=== PATIENT | male | born 1950 | race Caucasian/White ===

== ENCOUNTER 2017-10-30 07:53 | Emergency (ER) | payer MEDICARE, BC ==
[2017-10-30] MEDS: NORCO, ANEXSIA 5/325MG TABLET (HYDROcodone/ACETAMINOPHEN) PO (09:05)
== END 2017-10-30 09:19 | disposition home or self-care (01) ==
LOC: M ED 07:53
DX: S42.002A Fracture of unspecified part of left clavicle, initial encounter for closed fracture (principal); S43.102A Unspecified dislocation of left acromioclavicular joint, initial encounter; W10.9XXA Fall (on) (from) unspecified stairs and steps, initial encounter; Y92.009 Unspecified place in unspecified non-institutional (private) residence as the place of occurrence of the external cause; R56.9 Unspecified convulsions; Z79.899 Other long term (current) drug therapy; Z98.890 Other specified postprocedural states
CPT/HCPCS: 73030

== ENCOUNTER 2022-02-12 11:07 | Emergency (ER) | payer MEDICARE, SELFPAY ==
[~2022-02-12] VITALS: Ht 177.8 cm; Wt 71.8 kg
[~2022-02-12 11:07] MED LIST: HYDR-3715 PO; LAMI1TAB7 PO
[2022-02-12] MEDS ORDERED: TAMS1CAP17 (11:16)
[2022-02-12] MEDS ORDERED: diazePAM 10MG/2ML SYRINGE (J3360 PER 5MG) IV ONE (14:25)
[2022-02-12] MEDS ORDERED: NORCO, ANEXSIA 5/325MG TABLET (HYDROcodone/ACETAMINOPHEN) PO ONE (14:25)
[2022-02-12] MEDS ORDERED: ISOVUE-370 76% 100ML VIAL As Ordered ONE (14:26)
[2022-02-12 14:40] LABS: BASO % 0.4 % (0.0-1.0); EOS # 0.1 10^3/uL (0.0-0.5); EOS % 1.7 % (0.0-3.0); HEMATOCRIT 41.6 % (42.0-52.0); LYMPH # 1.7 10^3/uL (1.5-5.0); LYMPH % 23.9 % (24.0-44.0); MEAN CORPUSCULAR HEMOGLOBIN 34.1 pg (27.0-33.0); MEAN CORPUSCULAR HGB CONC 33.7 g/dl (32.0-36.5); MEAN CORPUSCULAR VOLUME 101.2 fl (80.0-96.0); MONO # 0.5 10^3/uL (0.0-0.8); MONO % 7.8 % (2.0-8.0); NEUTROPHILS # 4.6 10^3/uL (1.5-8.5); NEUTROPHILS % 66.1 % (36.0-66.0); PLATELET COUNT, AUTOMATED 187 10^3/uL (150-450); RED BLOOD COUNT 4.11 10^6/uL (4.30-6.10)
[2022-02-12 14:56] LABS: INR 0.9; PROTHROMBIN TIME 12.6 SECONDS (12.7-14.5)
[2022-02-12 14:57] LABS: PARTIAL THROMBOPLASTIN TIME 30.8 SECONDS (25.9-37.0)
[2022-02-12] MEDS ORDERED: VALI2TAB PO (15:21)
[2022-02-12] MEDS ORDERED: HYDR-3713 PO (15:21)
[2022-02-12 15:33] VITALS: BP 162/83
== END 2022-02-12 15:35 | disposition home or self-care (01) ==
LOC: M ED 11:07
DX: K76.6 Portal hypertension (principal); K74.60 Unspecified cirrhosis of liver; I70.90 Unspecified atherosclerosis; R07.81 Pleurodynia; W22.8XXA Striking against or struck by other objects, initial encounter; Y92.099 Unspecified place in other non-institutional residence as the place of occurrence of the external cause; Y93.9 Activity, unspecified; Y99.9 Unspecified external cause status; R56.9 Unspecified convulsions; Z87.81 Personal history of (healed) traumatic fracture; Z87.820 Personal history of traumatic brain injury; Z87.09 Personal history of other diseases of the respiratory system; F17.290 Nicotine dependence, other tobacco product, uncomplicated; Z79.899 Other long term (current) drug therapy
CPT/HCPCS: 71101; 71260; 80047; 85025; 85610; 85730; 96374; 99284; J3360; Q9967

== ENCOUNTER 2025-06-12 16:35 | Inpatient (IN) | payer MEDICARE ==
[~2025-06-12] VITALS: Ht 177.8 cm; Wt 69.5 kg
[~2025-06-12 16:35] MED LIST changes: +HYDR-3713 PO; +TAMS1CAP17 PO; +VALI2TAB PO
[2025-06-12] MEDS ORDERED: DONE5TAB82 (17:03)
[2025-06-12] MEDS ORDERED: LEVE500T5 (17:03)
[2025-06-12 17:31] LABS: BASO # 0.0 10^3/uL (0.0-0.2); BASO % 0.3 % (0.0-1.0); EOS # 0.1 10^3/uL (0.0-0.5); EOS % 1.3 % (0.0-3.0); LYMPH # 1.2 10^3/uL (1.5-5.0); LYMPH % 17.2 % (24.0-44.0); MONO # 0.6 10^3/uL (0.0-0.8); MONO % 8.6 % (2.0-8.0); NEUTROPHILS # 5.2 10^3/uL (1.5-8.5); NEUTROPHILS % 72.0 % (36.0-66.0); PLATELET COUNT, AUTOMATED 249 10^3/uL (150-450)
[2025-06-12 17:49] LABS: ALT/SGPT 13 U/L (7.0-40); AST/SGOT 22 U/L (<34); CALCIUM LEVEL 8.7 MG/DL (8.3-10.6); CARBON DIOXIDE LEVEL 26 MMOL/L (20-31); CHLORIDE LEVEL 91 MMOL/L (98-107); CREATININE FOR GFR 0.58 MG/DL (0.70-1.30); GLOMERULAR FILTRATION RATE > 90.0 (>42); MAGNESIUM LEVEL 1.7 MG/DL (1.8-2.4); POTASSIUM SERUM 4.8 MMOL/L (3.5-5.1); SODIUM LEVEL 123 MMOL/L (136-145)
[2025-06-12] MEDS: ACETAMINOPHEN *IV* 1,000 MG in IV 1 EA IV ONE (18:32)
[2025-06-12 19:05] LABS: OSMOLALITY SERUM 262 MOSM/KG (280-301)
[2025-06-12 19:11] LABS: FREE T4 1.04 NG/DL (0.89-1.76)
[2025-06-12] MEDS: DESMOPRESSIN ACETATE IV ONE (19:58)
[2025-06-12] MEDS: NS IV ONE (19:58)
[2025-06-12] MEDS: lamoTRIgine 100 MG TAB PO ONE (23:45)
[2025-06-13] VITALS (22 sets, daily range): BP systolic 115–159; BP diastolic 61–87; TEMP 97.7–98.8; O2SAT 94–97
[2025-06-13] MEDS: NS (Normal Saline) 0.9% 1,000 ML IV SCH (03:09)
[2025-06-13] MEDS: ACETAMINOPHEN *IV* 1,000 MG in IV 1 EA IV ONE (03:09)
[2025-06-13] MEDS: MAG SULF 1GM/100ML (MAG RUN) 1 GM in IV 1 EA IV ONE (03:36)
[2025-06-13 07:48] LABS: PLATELET COUNT, AUTOMATED 195 10^3/uL (150-450)
[2025-06-13 08:12] LABS: ALT/SGPT 12 U/L (7.0-40); AST/SGOT 18 U/L (<34); CALCIUM LEVEL 8.0 MG/DL (8.3-10.6); CARBON DIOXIDE LEVEL 24 MMOL/L (20-31); CHLORIDE LEVEL 89 MMOL/L (98-107); CREATININE FOR GFR 0.56 MG/DL (0.70-1.30); GLOMERULAR FILTRATION RATE > 90.0 (>42); MAGNESIUM LEVEL 1.8 MG/DL (1.8-2.4); PHOSPHORUS LEVEL 3.7 MG/DL (2.4-5.1); POTASSIUM SERUM 3.9 MMOL/L (3.5-5.1); SODIUM LEVEL 121 MMOL/L (136-145)
[2025-06-13] MEDS ORDERED: lamoTRIgine 100 MG TAB PO SCH (09:00)
[2025-06-13] MEDS ORDERED: PILL CUTTER 1 EACH XX PRN (09:05)
[2025-06-13] MEDS: PANTOPRAZOLE 40MG VIAL IV SCH (09:11)
[2025-06-13] MEDS: levETIRAcetam INJection 500 MG in DEXTROSE 5% (D5W) MINI-BAG PLU 100 ML IV SCH (09:11)
[2025-06-13] MEDS: lamoTRIgine 100 MG TAB PO SCH (09:11)
[2025-06-13 09:12] LABS: OSMOLALITY SERUM 248 MOSM/KG (280-301)
[2025-06-13] MEDS ORDERED: DONE10TA90 PO (09:22)
[2025-06-13] MEDS ORDERED: BENZ200C70 PO (09:22)
[2025-06-13] MEDS ORDERED: DIAZ2TAB PO (09:22)
[2025-06-13] MEDS ORDERED: LAMO150T3 PO (09:22)
[2025-06-13] MEDS ORDERED: HOME MED LIST COMPLETE! XX SCH (09:25)
[2025-06-13 10:03] LABS: SODIUM,RANDOM URINE 153 MMOL/L
[2025-06-13] MEDS ORDERED: MOM 30 ML SUSPENSION UDC PO PRN (11:05)
[2025-06-13] MEDS ORDERED: DOCUSATE SODIUM 100 MG CAPSULE PO PRN (11:05)
[2025-06-13 13:55] LABS: CALCIUM LEVEL 7.9 MG/DL (8.3-10.6); CARBON DIOXIDE LEVEL 25 MMOL/L (20-31); CHLORIDE LEVEL 88 MMOL/L (98-107); CREATININE FOR GFR 0.57 MG/DL (0.70-1.30); GLOMERULAR FILTRATION RATE > 90.0 (>42); POTASSIUM SERUM 4.3 MMOL/L (3.5-5.1); SODIUM LEVEL 121 MMOL/L (136-145)
[2025-06-13] MEDS: ACETAMINOPHEN 500 MG TAB PO ONE (16:22)
[2025-06-13] MEDS: SODIUM CHLORIDE 1 GM TAB PO SCH (16:25)
[2025-06-13 18:48] LABS: CALCIUM LEVEL 8.1 MG/DL (8.3-10.6); CARBON DIOXIDE LEVEL 23 MMOL/L (20-31); CHLORIDE LEVEL 90 MMOL/L (98-107); CREATININE FOR GFR 0.61 MG/DL (0.70-1.30); GLOMERULAR FILTRATION RATE > 90.0 (>42); POTASSIUM SERUM 3.8 MMOL/L (3.5-5.1); SODIUM LEVEL 119 MMOL/L (136-145)
[2025-06-13] MEDS: SODIUM CHLORIDE 1 GM TAB PO ONE (19:19)
[2025-06-13] MEDS: lamoTRIgine 25 MG TAB PO SCH (20:40)
[2025-06-13] MEDS ORDERED: SODIUM CHLORIDE 1 GM TAB PO SCH (21:00)
[2025-06-14] VITALS (7 sets, daily range): BP systolic 139–176; BP diastolic 78–93; TEMP 98.2–99.2; O2SAT 94–97
[2025-06-14 00:07] LABS: CALCIUM LEVEL 7.9 MG/DL (8.3-10.6); CARBON DIOXIDE LEVEL 25 MMOL/L (20-31); CHLORIDE LEVEL 92 MMOL/L (98-107); CREATININE FOR GFR 0.68 MG/DL (0.70-1.30); GLOMERULAR FILTRATION RATE > 90.0 (>42); POTASSIUM SERUM 4.0 MMOL/L (3.5-5.1); SODIUM LEVEL 124 MMOL/L (136-145)
[2025-06-14 06:31] LABS: PLATELET COUNT, AUTOMATED 238 10^3/uL (150-450)
[2025-06-14 06:42] LABS: ALT/SGPT 14 U/L (7.0-40); AST/SGOT 19 U/L (<34); CALCIUM LEVEL 8.3 MG/DL (8.3-10.6); CARBON DIOXIDE LEVEL 27 MMOL/L (20-31); CHLORIDE LEVEL 92 MMOL/L (98-107); CREATININE FOR GFR 0.64 MG/DL (0.70-1.30); GLOMERULAR FILTRATION RATE > 90.0 (>42); POTASSIUM SERUM 4.5 MMOL/L (3.5-5.1); SODIUM LEVEL 125 MMOL/L (136-145)
[2025-06-14] MEDS: SODIUM CHLORIDE 1 GM TAB PO SCH (09:33)
[2025-06-14] MEDS: MOM 30 ML SUSPENSION UDC PO SCH (09:33)
[2025-06-14] MEDS: DOCUSATE SODIUM 100 MG CAPSULE PO SCH (09:34)
[2025-06-14] MEDS ORDERED: LAMI25TA PO (11:47)
[2025-06-14] MEDS ORDERED: KEPP250T5 PO (11:47)
== END 2025-06-14 13:45 | disposition home or self-care (01) | DRG 86 ==
LOC: M ED 16:35 → EDBD 16:35 → M ED INP 06-13 01:06 → M ICU 06-13 02:49
PROVIDERS: ADMIT Student in an Organized Health Care Education/Training Program; ATTEND Internal Medicine Pulmonary Disease
DX: S06.5X0A Traumatic subdural hemorrhage without loss of consciousness, initial encounter (principal); E22.2 Syndrome of inappropriate secretion of antidiuretic hormone; I10 Essential (primary) hypertension; D64.9 Anemia, unspecified; G40.909 Epilepsy, unspecified, not intractable, without status epilepticus; S06.6X0A Traumatic subarachnoid hemorrhage without loss of consciousness, initial encounter; E83.42 Hypomagnesemia; N40.0 Benign prostatic hyperplasia without lower urinary tract symptoms; F17.200 Nicotine dependence, unspecified, uncomplicated; W18.30XA Fall on same level, unspecified, initial encounter; Y92.009 Unspecified place in unspecified non-institutional (private) residence as the place of occurrence of the external cause; Z79.899 Other long term (current) drug therapy

== ENCOUNTER 2025-06-27 19:46 | Emergency (ER) | payer MEDICARE ==
[~2025-06-27] VITALS: Ht 177.8 cm; Wt 69.5 kg
[~2025-06-27 19:46] MED LIST changes: +BENZ200C70 PO; +DIAZ2TAB PO; +DONE10TA90 PO; +DONE5TAB82; +KEPP250T5 PO; +LAMI25TA PO; +LAMO150T3 PO; +LEVE500T5
[2025-06-27 20:20] LABS: VENOUS BASE EXCESS -4.0 (-2.0-2.0); VENOUS HCO3 22.3 MMOL/L (23.0-27.0); VENOUS O2 SATURATION 41.0 % (60.0-80.0); VENOUS PARTIAL PRESSURE CO2 45.0 mmHg (38.0-50.0); VENOUS PARTIAL PRESSURE O2 25.8 mmHg (30.0-50.0); VENOUS PH 7.313 UNITS (7.330-7.430); VENOUS STANDARD HCO3 20.0 MMOL/L; VENOUS TOTAL CO2 23.7 MMOL/L (24.0-28.0)
[2025-06-27 20:24] LABS: BASO # 0.1 10^3/uL (0.0-0.2); BASO % 0.6 % (0.0-1.0); EOS # 0.1 10^3/uL (0.0-0.5); EOS % 1.5 % (0.0-3.0); LYMPH # 1.6 10^3/uL (1.5-5.0); LYMPH % 20.4 % (24.0-44.0); MONO # 0.8 10^3/uL (0.0-0.8); MONO % 10.5 % (2.0-8.0); NEUTROPHILS # 5.2 10^3/uL (1.5-8.5); NEUTROPHILS % 66.6 % (36.0-66.0); PLATELET COUNT, AUTOMATED 314 10^3/uL (150-450)
[2025-06-27 20:50] LABS: ALT/SGPT 14 U/L (7.0-40); AST/SGOT 19 U/L (<34); CALCIUM LEVEL 8.8 MG/DL (8.3-10.6); CARBON DIOXIDE LEVEL 28 MMOL/L (20-31); CHLORIDE LEVEL 96 MMOL/L (98-107); CREATININE FOR GFR 0.76 MG/DL (0.70-1.30); GLOMERULAR FILTRATION RATE > 90.0 (>42); MAGNESIUM LEVEL 1.9 MG/DL (1.8-2.4); PHOSPHORUS LEVEL 4.7 MG/DL (2.4-5.1); POTASSIUM SERUM 4.5 MMOL/L (3.5-5.1); SODIUM LEVEL 133 MMOL/L (136-145)
[2025-06-27] MEDS: NS (Normal Saline) 0.9% 1,000 ML IV ONE (22:46)
[2025-06-28 01:45] VITALS: O2SAT 95
[2025-06-28 01:46] VITALS: BP 127/71; TEMP 98.3
== END 2025-06-28 01:58 | disposition home or self-care (01) ==
LOC: M ED 19:46
DX: G40.909 Epilepsy, unspecified, not intractable, without status epilepticus (principal); Z79.899 Other long term (current) drug therapy; F17.200 Nicotine dependence, unspecified, uncomplicated; R94.31 Abnormal electrocardiogram [ECG] [EKG]; M50.021 Cervical disc disorder at C4-C5 level with myelopathy; M50.222 Other cervical disc displacement at C5-C6 level; M50.223 Other cervical disc displacement at C6-C7 level